=== PATIENT | male | born 1935 | race Caucasian/White ===

== ENCOUNTER 2019-07-02 15:38 | Emergency (ER) | payer MEDICARE, OTHER ==
[2019-07-02] MEDS ORDERED: MELOXICAM 7.5 MG TABLET PO STA (16:26)
[2019-07-02] MEDS ORDERED: CYCLOBENZAPRINE 10 MG TABLET PO STA (16:26)
--- NOTE | 2019-07-02 16:43 | ED Physician Documentation ---
History of Present Illness - Stated complaint Stated Complaint: GLF - Chief complaint Chief Complaint: General - History obtained from History obtained from: Patient, Family - History of Present Illness Timing: Today Pain level max: 7 Pain level now: 5 - Additonal information Additional information: 83-year-old male [place] [employer] [place] when he was walking on a bale of hay, slipped and fell backwards landing on his upper back. No head or neck pain. No loss of consciousness. No vomiting. Not on blood thinners. Is having pain near the shoulder blades bilaterally. Worse with movement and better with rest. Did not take anything prior to arrival. No hip, knee or ankle pain. Review of Systems Ten Systems: 10 systems reviewed and negative Constitutional: denies: Fever, Chills Ears: denies: Ear pain Nose: denies: Rhinorrhea / runny nose, Congestion Respiratory: denies: Cough GI: denies: Nausea, Vomiting, Diarrhea : denies: Dysuria Skin: denies: Rash Musculoskeletal: denies: Neck pain Neurologic: denies: Focal weakness, Numbness, Headache PD PAST MEDICAL HISTORY - Past Medical History Past Medical History: Yes Cardiovascular: Hypertension - Present Medications Home Medications: Ambulatory Orders Medication Instructions Recorded Confirmed Hydrochlorothiazide 07/02/19 Lisinopril 07/02/19 - Allergies Allergies/Adverse Reactions: Allergies Allergy/AdvReac Type Severity Reaction Status Date / Time No Known Drug Allergies Allergy Verified 07/02/19 15:52 - Living Situation Living Situation: reports: With family Living Arrangement: reports: At home - Social History Does the pt smoke?: No Does the pt have substance abuse?: No - Family History Family history: reports: Non contributory PD ED PE NORMAL - Vitals Vital signs reviewed: Yes - General General: Alert and oriented X 3, No acute distress - HEENT HEENT: Atraumatic, PERRL, Moist mucous membranes - Neck Neck: Supple, no meningeal sign, No bony TTP - Cardiac Cardiac: RRR, Strong equal pulses - Respiratory Respiratory: No respiratory distress, Clear bilaterally - Abdomen Abdomen: Soft, Non tender, Non distended - Back Back: Other (Mild paraspinal tenderness bilateral upper thoracic area.Pain is worse with movement No crepitus. No tenderness over the ribs.) - Derm Derm: Warm and dry - Extremities Extremities: No deformity, No tenderness to palpate, Other (Normal bilateral lower extremity patellar and ankle jerk reflexes. Normal great toe extension bilaterally. 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, No motor deficit, No sensory deficit, Normal speech - Psych Psych: Normal mood, Normal affect Results - Vitals Vitals: Vital Signs - 24 hr 07/02/19 07/02/19 15:50 18:34 Temperature 36.8 C Heart Rate 76 91 Respiratory 20 14 Rate Blood Pressure 118/64 145/81 H O2 Saturation 97 99 Oxygen O2 Source Room air - Labs Labs: Laboratory Tests 07/02/19 07/02/19 18:30 18:30 WBC 10.9 H RBC 5.01 Hgb 15.3 Hct 46.5 MCV 92.8 MCH 30.5 MCHC 32.9 RDW 13.3 Plt Count 153 MPV 10.2 Neut # (Auto) 9.6 H Lymph # (Auto) 0.4 L Foard # (Auto) 0.7 Eos # (Auto) 0.1 Baso # (Auto) 0.1 Absolute Nucleated RBC 0.00 Nucleated RBC % 0.0 Sodium 138 Potassium 4.0 Chloride 96 L Carbon Dioxide 30 Anion Gap 12.0 BUN 20 Creatinine 0.8 Estimated GFR (MDRD) 93 Glucose 135 H Calcium 9.2 - Rads (name of study) CT chest Radiology: Prelim report reviewed, EMP read contemporaneously, See rad report (1. Biapical patchy opacities along with the regular nodular foci of consolidation at the left upper lobe and left lower lobe are of unclear etiology. Findings could reflect infection in the appropriate context. Malignancy is also not entirely excluded given the imaging appearance. Correlation with patient's symptoms is recommended. Short interval follow-up CT in 3 months is recommended for reassessment. 2. Bilateral central bronchial wall thickening with mild bronchiectasis could reflect sequelae of chronic central airways disease. 3. No enlarged mediastinal or hilar lymph nodes. 4. Compression fracture of T3 is seen with approximately 50% vertebral height loss and mild retropulsion posteriorly into the spinal canal. This is worrisome for acute compression fracture. Thoracic spine MRI should be considered for further assessment, for evaluation of possible spinal cord involvement. ) PD MEDICAL DECISION MAKING - ED course Complexity details: reviewed results, re-evaluated patient, considered differential, d/w patient, d/w family, d/w taxation consultant ED course: Patient with a T3 compression fracture with 3 mm of retropulsed fragments. No MRI available here. Discussed with Dr.Sean Healy in the emergency department at [facility] who graciously accepts in transfer at 1855. COBRA forms completed. Also discussed with trauma surgery at [facility] in [place] who agrees with transfer as well. The other CT chest findings are likely due to his history of radiation for non-Hodgkin's lymphoma. His daughter is a local grass farm laborer and states that these findings are old. Patient transferred This document was made in part using voice recognition software. While efforts are made to proofread this document, sound alike and grammatical errors may occur. Departure - Departure Disposition: 02 Transfer Acute Care Hosp Clinical Impression: Compression fracture of T3 vertebra Qualifiers: Encounter type: initial encounter Qualified Code(s): S22.030A - Wedge compression fracture of third thoracic vertebra, initial encounter for closed fracture Condition: Good
--- NOTE | 2019-07-02 17:36 | CT Report ---
Reason: fall, back pain Procedure Date: 07/02/2019 Accession Number: [id number] / [id number] Procedure: CT - CHEST WO CPT Code: FULL RESULT: EXAM: CT CHEST EXAM DATE: 07/02/2019 05:06 PM. CLINICAL HISTORY: Fall, back pain. COMPARISONS: None. TECHNIQUE: Routine helical CT imaging was performed through the chest. IV contrast: None. Reconstructions: Coronal and sagittal. In accordance with CT protocol optimization, one or more of the following dose reduction techniques were utilized for this exam: automated exposure control, adjustment of mA and/or KV based on patient size, or use of iterative reconstructive technique. FINDINGS: Lungs/Pleura: Patchy opacities are seen in the bilateral pulmonary apices. Irregular shaped focus of nodular consolidation is seen in the posterior aspect of the left upper lobe measuring up to 1.5 cm. Similarly, there is a 0.8 cm focus of nodular consolidation in the superior segment of the left lower lobe along with a similar 1.3 cm focus of nodular consolidation in the medial aspect of the left lower lobe with a regular borders. Central bronchial wall thickening is seen with mild cylindrical bronchiectasis which could reflect sequelae of chronic reactive airways or bronchitis. No other focal consolidation. No pleural effusions. Mediastinum: Normal heart size. No pericardial effusion. Moderate coronary artery calcifications noted. Mild atheromatous Plaque of the Aortic Arch. No Enlarged Mediastinal or Hilar Lymph Nodes. Bones: Osteopenia. Age indeterminate compression deformity of T3 is seen with approximately 50% vertebral body height loss and evidence for mild retropulsion. Visualized Abdomen: Cholecystectomy evident. Other: None. IMPRESSION: 1. Biapical patchy opacities along with the regular nodular foci of consolidation at the left upper lobe and left lower lobe are of unclear etiology. Findings could reflect infection in the appropriate context. Malignancy is also not entirely excluded given the imaging appearance. Correlation with patient's symptoms is recommended. Short interval follow-up CT in 3 months is recommended for reassessment. 2. Bilateral central bronchial wall thickening with mild bronchiectasis could reflect sequelae of chronic central airways disease. 3. No enlarged mediastinal or hilar lymph nodes. 4. Compression fracture of T3 is seen with approximately 50% vertebral height loss and mild retropulsion posteriorly into the spinal canal. This is worrisome for acute compression fracture. Thoracic spine MRI should be considered for further assessment, for evaluation of possible spinal cord involvement. [facility]
[2019-07-02] MEDS ORDERED: MORPHINE 2 MG/ML CARPUJECT IVP STA (18:06)
[2019-07-02 18:42] LABS: BASOPHILS # (AUTO) 0.1 10^3/uL (0.0-0.1); BASOPHILS % (AUTO) 0.6 %; EOSINOPHILS # (AUTO) 0.1 10^3/uL (0.0-0.7); EOSINOPHILS % (AUTO) 0.9 %; HGB - HEMOGLOBIN 15.3 g/dL (14.0-18.0); LYMPHOCYTES # (AUTO) 0.4 10^3/uL (1.5-3.5); LYMPHOCYTES % (AUTO) 3.9 %; MEAN CORPUSCULAR HEMOGLOBIN 30.5 pg (27.0-31.0); MEAN CORPUSCULAR HGB CONC 32.9 g/dL (32.0-36.0); MEAN CORPUSCULAR VOLUME 92.8 fL (80.0-94.0); MEAN PLATELET VOLUME 10.2 fL (7.4-11.4); MONOCYTES # (AUTO) 0.7 10^3/uL (0.0-1.0); MONOCYTES % (AUTO) 6.3 %; NEUTROPHILS # (AUTO) 9.6 10^3/uL (1.5-6.6); NEUTROPHILS % (AUTO) 87.7 %; PLT - PLATELET COUNT 153 10^3/uL (130-450); RED BLOOD COUNT 5.01 10^6/uL (4.70-6.10); RED CELL DISTRIBUTION WIDTH 13.3 % (12.0-15.0); WHITE BLOOD COUNT 10.9 x10^3/uL (4.8-10.8)
[2019-07-02 18:52] LABS: CALCIUM 9.2 mg/dL (8.5-10.3); CREATININE 0.8 mg/dL (0.6-1.2)
[2019-07-02 20:29] VITALS: BP 138/83
== END 2019-07-02 20:30 | disposition short-term general hospital (02) ==
LOC: ED 15:38
DX: S22.030A Wedge compression fracture of third thoracic vertebra, initial encounter for closed fracture (principal); W17.89XA Other fall from one level to another, initial encounter; Y93.01 Activity, walking, marching and hiking; Y92.89 Other specified places as the place of occurrence of the external cause; I10 Essential (primary) hypertension; Z92.3 Personal history of irradiation; Z85.72 Personal history of non-Hodgkin lymphomas
CPT/HCPCS: 36415; 71250; 80048; 85025; 96374; 99285; A9270

== ENCOUNTER 2019-07-02 20:33 | Outpatient (CLI) | payer MEDICARE, OTHER | END 2019-07-02 20:34 | disposition short-term general hospital (02) | LOC: EMS 20:33 | PROVIDERS: ATTEND Surgery | DX: S22.039A Unspecified fracture of third thoracic vertebra, initial encounter for closed fracture (principal); W17.89XA Other fall from one level to another, initial encounter | CPT/HCPCS: A0425; A0428 ==